=== PATIENT | female | born 1975 | race Caucasian/White ===

== ENCOUNTER 2017-10-23 14:23 | Emergency (ER) | payer OTHER ==
[~2017-10-23] VITALS: Ht 160 cm; Wt 104.3 kg
[2017-10-23] MEDS ORDERED: LAMICTAL100 MG PO (14:36)
[2017-10-23 14:51] VITALS: BP 110/68
[2017-10-23] MEDS ORDERED: NORCO 5-325 TA1 EACH PO (16:29)
[2017-10-23] MEDS ORDERED: MOBIC7.5 MG PO (16:29)
== END 2017-10-23 16:51 | disposition home or self-care (01) ==
LOC: ER 14:23
DX: M25.511 Pain in right shoulder (principal); M25.521 Pain in right elbow; M79.641 Pain in right hand; M25.531 Pain in right wrist; M25.431 Effusion, right wrist; W01.0XXA Fall on same level from slipping, tripping and stumbling without subsequent striking against object, initial encounter; Y92.009 Unspecified place in unspecified non-institutional (private) residence as the place of occurrence of the external cause; Y93.89 Activity, other specified; Y99.8 Other external cause status